=== PATIENT | female | born 1950 | race Caucasian/White ===

== ENCOUNTER 2017-05-08 07:37 | Inpatient (IN) | payer OTHER ==
[2017-04-28 13:49] VITALS: BMI 35.0
--- NOTE | 2017-04-28 14:35 | PAT Medication Instructions ---
Service Date Apr 28, 2017. Current Home Medication List Aspirin (Aspirin Ec), 81 MG PO HS Betamethasone Dip (Betamethasone Dipropionat), 1 APPLN TOP PRN Cholecalciferol (Vitamin D3), 1 TAB PO QAM Cyanocobalamin (Vitamin B-12 Inj), 1 ML IM MONTHLY Cyanocobalamin (Vitamin B-12), 2,500 MCG SL QAM Docusate Sodium (Colace), 1 CAP PO BID Doxycycline Monohydrate (Monodox), 100 MG PO BID Famotidine (Pepcid), 20 MG PO BID Fentanyl (Duragesic), 50 MCG TD CQ72HR Furosemide (Lasix), 20 MG PO QAM Magnesium Oxide (Mag-Ox), 400 MG PO QAM Multivitamin (Multivitamin), 2 TAB PO QAM Oxycodone Ir (Roxicodone Ir), 1-2 TAB PO Q4H PRN for Severe Pain Potassium Ext Rel (Klor-Con), 20 MEQ PO QAM Turmeric (Curcuma Longa) (Turmeric), 500 MG PO QAM Vitamin E (Alph-E), 400 UNITS PO QAM [Ferrous Sulfate], 65 MG PO QAM Medication Instructions For Your Scheduled Surgery -Continue as directed: Cyanocobalamin (Vitamin B-12 Inj), 1 ML IM MONTHLY Fentanyl (Duragesic), 50 MCG TD CQ72HR - Hold the following medications 2 weeks prior to surgery: Vitamin E (Alph-E), 400 UNITS PO QAM Turmeric (Curcuma Longa) (Turmeric), 500 MG PO QAM - Hold the following medications 24 hours prior to surgery: Betamethasone Dip (Betamethasone Dipropionat), 1 APPLN TOP PRN - Hold the following medications the morning of surgery: [Ferrous Sulfate], 65 MG PO QAM Potassium Ext Rel (Klor-Con), 20 MEQ PO QAM Furosemide (Lasix), 20 MG PO QAM Magnesium Oxide (Mag-Ox), 400 MG PO QAM Multivitamin (Multivitamin), 2 TAB PO QAM Cyanocobalamin (Vitamin B-12), 2,500 MCG SL QAM Cholecalciferol (Vitamin D3), 1 TAB PO QAM Docusate Sodium (Colace), 1 CAP PO BID - Take the following medications the morning of surgery with a sip of water: Oxycodone Ir (Roxicodone Ir), 1-2 TAB PO Q4H PRN for Severe Pain (if needed) Doxycycline Monohydrate (Monodox), 100 MG PO BID Famotidine (Pepcid), 20 MG PO BID - Take the following medications as scheduled the night before surgery: Aspirin (Aspirin Ec), 81 MG PO HS Oxycodone Ir (Roxicodone Ir), 1-2 TAB PO Q4H PRN for Severe Pain (if needed) Doxycycline Monohydrate (Monodox), 100 MG PO BID Famotidine (Pepcid), 20 MG PO BID Docusate Sodium (Colace), 1 CAP PO BID If you have any questions please call us at [phone] or [phone] or [phone]
--- NOTE | 2017-04-28 15:24 | DIAGNOSTIC IMAGING REPORT ---
CHEST PREADMISSION(PA/LAT) HISTORY: Preop. COMPARISON: Chest 10/05/2015. FINDINGS: Posterior fusion within the lower thoracic spine. Small to moderate hiatus hernia. The heart is normal in size. No focal lung consolidations to suggest pneumonia. No evidence for pulmonary edema. Stable punctate calcified granuloma within the left lung apex. No pneumothorax. No pleural effusions. IMPRESSION: No acute process within the chest. Small to moderate hiatus hernia persists. Electronically signed by: Kolby Henderson M.D. 04/28/2017 3:22 PM Dictated Date/Time: 04/28/2017 3:21 PM
[2017-04-28 15:29] LABS: URINE APPEARANCE CLEAR (CLEAR); URINE BILIRUBIN NEG (NEG); URINE COLOR DK YELLOW; URINE EPITHELIAL CELL AUTO >30 /lpf (0-5); URINE NITRITE NEG (NEG); URINE PH 8.5 (4.5-7.5); URINE SPECIFIC GRAVITY 1.022 (1.000-1.030); UROBILINOGEN NEG (NEG)
[2017-04-28 15:30] LABS: BUN/CREATININE RATIO 15.4 (10-20); CALCIUM 8.4 mg/dl (8.5-10.1); CREATININE 0.68 mg/dl (0.60-1.20); MANUAL MICROSCOPIC REQUIRED? NO; POTASSIUM 3.7 mmol/L (3.5-5.1); REVIEW REQ? NO
[~2017-05-08] VITALS: Ht 154.9 cm; Wt 83.2 kg
[2017-05-08] VITALS (8 sets, daily range): BP systolic 90–146; BP diastolic 46–79; PULSE 87–99; TEMP 36.8–37.3; O2SAT 93–98; Ht 154.9 cm; Wt 83.2 kg
[~2017-05-08 07:37] MED LIST: ASPI81TA28 PO; CHOL20007 PO; CLINDAMYCIN 600 MG/54 ML D5W IV SCH; CYAN10005 SL; CYAN3INJ IM; DOCU-94 PO; DOXY100C76 PO; DPRSCR15 TOP; FAMO20TA11 PO; FERROUS SULFATE PO; FNTTP50 TD; FURO-85 PO; LACTATED RINGER'S 1000ML 1,000 ML IV SCH; MAGN400T6 PO; MULT-506 PO; OXYC1TAB3 PO; POTA20TA16 PO; TURM1CAP4 PO; VITA400C28 PO
[2017-05-08 08:46] LABS: INR 1.4 (0.9-1.1); PARTIAL THROMBOPLASTIN RATIO 1.1
[2017-05-08] MEDS ORDERED: FENTANYL CITRATE INJ 50 MCG/1 ML 2 ML VIAL ONE ×2 (09:12→10:25)
[2017-05-08] MEDS ORDERED: MIDAZOLAM HCL 1 MG/ML 2ML VIAL ONE (09:12)
[2017-05-08] MEDS ORDERED: ONDANSETRON INJ 2 MG/ML 2 ML VIAL IV PRN ×2 (09:15→11:00)
[2017-05-08] MEDS ORDERED: ATROPINE SULFATE 0.1 MG/ML 5ML SYR IV PRN (09:15)
[2017-05-08] MEDS ORDERED: EpHEDrine SULFATE INJ 50 MG/ML AMP IV PRN (09:15)
[2017-05-08] MEDS ORDERED: FENTANYL CITRATE INJ 50 MCG/1 ML 2 ML VIAL IV PRN (09:15)
--- NOTE | 2017-05-08 09:25 | History & Physical Bridge Note ---
H&P Re-Evaluation Bridge Note: I have examined the patient, reviewed the History & Physical and in the interval since the performance of the History & Physical I have noted the following changes of clinical significance: No changes noted
--- NOTE | 2017-05-08 09:26 | History and Physical ---
History & Physical Date May 08, 2017. Chief Complaint Chronic back and leg pain History of Present Illness The patient is a 67 year old female with complaints of chronic back and leg pain Past Medical/Surgical History Medical Problems: (1) Lumbar stenosis with neurogenic claudication Additional History Hepatic Disease: No Endocrine Disorder: No Kidney Disease: No Hypertension: No Heart Disease: No Bleeding Tendencies: No Infectious Diseases: No Allergies Coded Allergies: Penicillins (Verified Allergy, Severe, Throat swelling, hives, 05/08/17) Benzyl Alcohol (Verified Allergy, Intermediate, Facial swelling- benzylperoxide, 05/08/17) Wasp (Verified Allergy, Unknown, ALL STINGING INSECTS 'CEPT HONEYBEES - HIVES SOB THROAT SWELL, 05/08/17) Morphine (Verified Adverse Reaction, Mild, Nausea, 05/08/17) Home Medications Scheduled Aspirin (Aspirin Ec), 81 MG PO HS Betamethasone Dip (Betamethasone Dipropionat), 1 APPLN TOP PRN Cholecalciferol (Vitamin D3), 1 TAB PO QAM Cyanocobalamin (Vitamin B-12 Inj), 1 ML IM MONTHLY Cyanocobalamin (Vitamin B-12), 2,500 MCG SL QAM Docusate Sodium (Colace), 1 CAP PO BID Doxycycline Monohydrate (Monodox), 100 MG PO BID Famotidine (Pepcid), 20 MG PO BID Fentanyl (Duragesic), 50 MCG TD CQ72HR Furosemide (Lasix), 20 MG PO QAM Magnesium Oxide (Mag-Ox), 400 MG PO QAM Multivitamin (Multivitamin), 2 TAB PO QAM Potassium Ext Rel (Klor-Con), 20 MEQ PO QAM Turmeric (Curcuma Longa) (Turmeric), 500 MG PO QAM Vitamin E (Alph-E), 400 UNITS PO QAM [Ferrous Sulfate], 65 MG PO QAM Scheduled PRN Oxycodone Ir (Roxicodone Ir), 1-2 TAB PO Q4H PRN for Severe Pain Physical Examination Skin: warm/dry, no rash Eyes: normal inspection, EOMI, sclerae normal ENT: normal ENT inspection, pharynx normal Head: normocephalic, atraumatic Neck: supple, no adenopathy, trachea midline Respiratory/Chest: lungs clear, normal breath sounds, no respiratory distress Cardiovascular: regular rate, rhythm, no edema, no murmur Abdomen / GI: normal bowel sounds, non tender Back: normal inspection Extremities: normal inspection, normal range of motion Neurologic/Psych: no motor/sensory deficits, alert, normal reflexes, oriented x 3 Diagnosis Chronic back and leg pain Plan of Treatment Spinal cord stimulator trial
[2017-05-08] MEDS ORDERED: BACITRACIN 50000 UNIT VIAL ONE (09:55)
[2017-05-08] MEDS ORDERED: BUPIVACAINE/EPINEPHRINE 0.5% MPF 1:200,000 30 ML VIAL ONE (09:55)
[2017-05-08] MEDS ORDERED: HYDROmorphone INJ 2 MG/ML SYR/VIAL ONE (10:25)
[2017-05-08] MEDS ORDERED: ONDANSETRON INJ 2 MG/ML 2 ML VIAL ONE (10:32)
[2017-05-08] MEDS ORDERED: ROCURONIUM BROMIDE 10 MG/ML 5 ML VIAL IV ONE (10:32)
[2017-05-08] MEDS ORDERED: PROPOFOL IV EMULSION 10 MG/ML 20 ML VIAL IV ONE (10:32)
[2017-05-08] MEDS ORDERED: LIDOCAINE HCL 2% 2 ML VIAL (20MG/ML) ONE (10:32)
[2017-05-08] MEDS ORDERED: GLYCOPYRROLATE INJ 0.2 MG/ML VIAL ONE (10:32)
[2017-05-08] MEDS ORDERED: NEOSTIGMINE METHYLSULFATE 1 MG/ML 10ML VIAL ONE (10:32)
[2017-05-08] MEDS ORDERED: PHENYLEPHRINE 100MCG/ML 5ML SYR ONE (10:32)
[2017-05-08] MEDS ORDERED: DEXAMETHASONE SOD INJ 4 MG/ML VIAL ONE (10:32)
[2017-05-08] MEDS ORDERED: ACETAMINOPHEN 325 MG TAB PO PRN (11:00)
[2017-05-08] MEDS ORDERED: MAGNESIUM HYDROXIDE SUSP 30 ML UDC PO PRN (11:00)
[2017-05-08] MEDS ORDERED: FENTANYL 50 MCG/HR TDSY TD SCH (11:00)
[2017-05-08] MEDS ORDERED: HYDROmorphone INJ 2 MG/ML SYR/VIAL IV PRN (11:00)
[2017-05-08] MEDS ORDERED: DO NOT ADMINISTER PNEUMOCOCCAL VACCINE PRN ×2 (11:00)
[2017-05-08] MEDS ORDERED: ACETAMINOPHEN 500 MG TAB PO PRN (11:00)
[2017-05-08] MEDS ORDERED: DO NOT ADMINISTER FLU VACCINE PRN ×3 (11:00)
[2017-05-08] MEDS ORDERED: LORAZEPAM 1 MG TAB PO PRN (11:00)
[2017-05-08] MEDS ORDERED: LORAZEPAM INJ 1 MG in SYRINGE 0 ML IV PRN (11:00)
--- NOTE | 2017-05-08 11:04 | DIAGNOSTIC IMAGING REPORT ---
SPINE ONE VIEW, ANY LEVEL CLINICAL HISTORY: SPINAL CORD STIMULATOR TRIAL COMPARISON STUDY: None. FINDINGS: A single fluoroscopic spot image of the lower thoracic spine was submitted. Total fluoroscopy time was 8 seconds. Spinal stimulator lead is noted. The exact level of the tip is difficult to determine but likely resides at the T8 vertebral body. There is posterior fusion hardware seen within the lower thoracic/lumbar spine. IMPRESSION: Fluoroscopy provided for spinal cord stimulator placement. Electronically signed by: Kolby Henderson M.D. 05/08/2017 11:03 AM Dictated Date/Time: 05/08/2017 11:02 AM
--- NOTE | 2017-05-08 11:08 | [facility] Operative Report ---
Operative Report Operative Date May 08, 2017. Pre-Operative Diagnosis Lumbar Post Laminectomy Syndrome Post-Operative Diagnosis Same as preoperative Procedure(s) Performed #1 T10 laminotomy. #2 placement of 16-lead dorsal column stimulator paddle with temporary leads. Surgeon Dr. Jasmeet Beard Radar [employer] Traffic Controller Surgeon(s) Charisma Samaniego PA-C Estimated Blood Loss 20ml Findings None Specimens None per surgeon Description of Procedure Patient was met with preoperatively case discussed all questions are dressed. That point patient was taken back to the operative suite after undergoing intubation placed in a prone position the Trevor table on top Jasson frame. All bony promises well-padded eyes inspected to ensure there is no external pressure placed upon them. This time the thoracal lumbar spine was prepped and draped in normal sterile fashion. With the assistance of fluoroscopy identified the T10 11 disc space. Midline incision was created overlying this region. Sharp dissection assistance of Bovie cautery was performed onto an exposing the lamina space at T10 11. Then performed a midline decompression laminotomy and placed a 16-lead dorsal constant later paddle within the spinal canal. We verified our position with fluoroscopy. The leads were then sewn into place. Temporary leads detached. There run to the left flank. I attached external box in the paddle was tested for efficacy. At this complete the incision was closed with 1 Vicryl fascia 2-0 Vicryl subcutaneous tediously 4 Monocryl for final closure Steri-Strips sterile dressings placed. Patient we can take PACU stable condition. Please note Charisma Alexander was present at the entire procedure involved in patient positioning complex portions of the surgery and final skin closure. I attest to the content of the Intraoperative Record and any orders documented therein. Any exceptions are noted below.
--- NOTE | 2017-05-08 11:35 | Anesthesiology Progress Note ---
Anesthesia Post Op Note Date & Time May 08, 2017 at 11:34 Vital Signs Pain Intensity: 0 Vital Signs Past 12 Hours Date Time Temp Pulse Resp B/P (MAP) Pulse Ox O2 Delivery O2 Flow Rate FiO2 05/08/17 11:30 100 16 96/62 100 Oxymask 10 05/08/17 11:20 109 16 104/65 100 Oxymask 10 05/08/17 11:11 36.8 105 16 126/71 97 Oxymask 10 05/08/17 08:33 37.3 90 18 146/74 (98) 98 Room Air Notes Mental Status: alert / awake / arousable, participated in evaluation Pt Amnestic to Procedure: Yes Nausea / Vomiting: adequately controlled Pain: adequately controlled Airway Patency, RR, SpO2: stable & adequate BP & HR: stable & adequate Hydration State: stable & adequate Anesthetic Complications: no major complications apparent
[2017-05-08] MEDS ORDERED: RXC5 PO (13:41)
--- NOTE | 2017-05-08 13:42 | Discharge Instructions ---
Discharge Instructions Date of Service May 08, 2017. Admission Reason for Admission: Lumbar Post-Laminectomy Syndrome Discharge Discharge Diagnosis / Problem: chronic back and leg pain Discharge Goals Goal(s): Decrease discomfort Activity Recommendations Activity Limitations: per Instructions/Follow-up section . Instructions / Follow-Up Instructions / Follow-Up ACTIVITY RECOMMENDATIONS: SELF CARE INSTRUCTIONS AFTER A LAMINECTOMY 1. No prolonged sitting (less than 30 minutes for the first 3 weeks after surgery). 2. No bending, lifting more than 5 pounds, or twisting (roll like a log when turning in bed). 3. You may shower 3 days after surgery if no drainage from wound. Thoroughly dry wound. Do not soak in the tub. 4. Please walk as much as you can for exercise. Gradually increase the distance that you walk as your endurance increases. 5. You may drive in 7-10 days if you are comfortable and no longer requiring pain medications. SPECIAL CARE INSTRUCTIONS: VERY IMPORTANT TO READ AND REVIEW A. Your surgical incision has been closed with a cosmetic suture under the skin that will dissolve in about 6 weeks. In 14 days, you can use a pair of clean scissors and cut the suture that is left outside of the skin at the ends of your incision. B. Complications are uncommon, but please contact us if you have any signs or symptoms of: 1. wound infection (fever higher than 102.5 degrees F, redness, separation of wound, drainage, or increasing pain from the incision) 2. blood clots in legs (pain, swelling, redness and warmth in legs) 3. urinary tract infection (fever higher than 102.5 degrees, burning upon urination or increased frequency of urination) 4. nerve problems (inability to walk on your toes or heels, numbness, loss of bowel or bladder control) 5. any other symptoms that concern you. C. Please call the office at if you have any concerns or questions about your operation or recovery. MANAGING PAIN AFTER SPINAL SURGERY 1. Narcotic medication is intended for short-term use and will be provided for surgical pain. Surgical pain usually lasts for a period of 4-6 weeks. Narcotic medication includes Percocet, Vicodin, Darvocet, Tylenol #3 or Lortab. 2. Longer-term pain is more appropriately treated with non-narcotic medication such as Tylenol ES. 3. Muscle spasm is not appropriately treated with narcotics. Muscle relaxers such as Soma, Flexeril or Skelaxin can be used along with Tylenol ES. 4. Remember that we all live with some "aches and pains". This is not unusual or uncommon after an injury or as we get older. 5. We will provide appropriate medication within the normal guidelines of their prescribed use. We will also be very cautious and aware of potential abuse and extended duration of patients' medication needs. 6. Please allow 2-3 days to process refills. Prescriptions will not be mailed but must be picked up at the office. FOLLOW UP VISIT: Keep your scheduled follow-up appointment. Any questions, please call the office at . Current Hospital Diet Patient's current hospital diet: Regular Diet Discharge Diet Recommended Diet: Regular Diet Procedures Procedures Performed: #1 T10 laminotomy. #2 placement of 16-lead dorsal column stimulator paddle with temporary leads. Pending Studies Studies pending at discharge: no Medical Emergencies . Who to Call and When: Medical Emergencies: If at any time you feel your situation is an emergency, please call 911 immediately. . Non-Emergent Contact Non-Emergency issues call your: Primary Care Provider . "Provider Documentation" section prepared by Jasmeet Beard. . VTE Core Measure Inpt VTE Proph given/why not?: Tiffany Stafford, SCD's
[2017-05-08] MEDS ORDERED: OXYCODONE HCL IR 5 MG TAB (IMMEDIATE RELEASE) ONE (13:59)
[2017-05-08] MEDS: SODIUM CHLORIDE 0.9% 1000ML 1,000 ML IV SCH (14:06)
[2017-05-08] MEDS: CHECK FENTANYL PATCH PLACEMENT SCH ×2 (16:27→23:18)
[2017-05-08] MEDS: CLINDAMYCIN IV 600 MG in DEXTROSE 5% 50ML 50 ML IV SCH (18:09)
[2017-05-08] MEDS: ASPIRIN 81 MG ECTAB PO SCH (21:53)
[2017-05-08] MEDS: DOXYCYCLINE HYCLATE 100 MG CAP PO SCH (21:53)
[2017-05-08] MEDS: FAMOTIDINE 20 MG TAB PO SCH (21:53)
[2017-05-08] MEDS: DEXAMETHASONE INJ 6 MG in SYRINGE 0 ML IV SCH (21:54)
[2017-05-08] MEDS: DOCUSATE SODIUM 100 MG CAP PO SCH (22:21)
[2017-05-08] MEDS: OXYCODONE HCL IR 5 MG TAB (IMMEDIATE RELEASE) PO PRN (23:19)
[2017-05-09] MEDS: CLINDAMYCIN IV 600 MG in DEXTROSE 5% 50ML 50 ML IV SCH ×2 (02:34→09:41)
[2017-05-09] MEDS: SODIUM CHLORIDE 0.9% 1000ML 1,000 ML IV SCH (02:37)
[2017-05-09 03:40] VITALS: BP 101/67; PULSE 71; TEMP 37; O2SAT 92
--- NOTE | 2017-05-09 05:57 | Clinical Documentation Query ---
CLINICAL DOCUMENTATION QUERY 67-y/o female who has undergone placement of neurostimulator for Chronic back pain 2/2 Lumbar Post Laminectomy Syndrome. The medical record reflects this patient as taking PO Lasix daily with out reason. In your clinical opinion is this patient being managed for: ( ) Chronic diastolic CHF managed with PO Lasix ( ) Not Agree ( ) Other explanation of clinical findings (Please Explain) ( ) Unable to determine (Please Define) ( ) Need to Discuss The medical record reflects the following clinical findings, treatment, and risk factors. Clinical Indicators: daily diuretic therapy Treatment: remains on Lasix daily Risk Factors: Age, Hx of HTN per anesthesia questionnaire Please clarify and document your clinical opinion in the progress notes and discharge summary. Terms such as "probable", "suspected", "likely", "questionable", "possible", or "still to be ruled out" are acceptable. IF IN AGREEMENT, YOU MUST DOCUMENT ABOVE DIAGNOSTIC STATEMENT IN DAILY PROGRESS NOTES AND DISCHARGE SUMMARY. This document is not part of the patient's record. Thank You, Darrion Rouse, RN [phone]
[2017-05-09] MEDS: DEXAMETHASONE INJ 6 MG in SYRINGE 0 ML IV SCH ×2 (05:58→13:44)
[2017-05-09 07:31] VITALS: BP 128/74; PULSE 71; TEMP 36.5; O2SAT 97
[2017-05-09] MEDS: CHECK FENTANYL PATCH PLACEMENT SCH ×3 (08:12→23:55)
[2017-05-09] MEDS: FUROSEMIDE 20 MG TAB PO SCH (08:17)
[2017-05-09] MEDS: DOCUSATE SODIUM 100 MG CAP PO SCH ×2 (08:17→20:47)
[2017-05-09] MEDS: FAMOTIDINE 20 MG TAB PO SCH ×2 (08:18→20:47)
[2017-05-09] MEDS: MAGNESIUM OXIDE 400 MG TAB PO SCH (08:18)
[2017-05-09] MEDS: DOXYCYCLINE HYCLATE 100 MG CAP PO SCH ×2 (08:18→20:46)
[2017-05-09] MEDS: POTASSIUM CHLORIDE 20 MEQ TABCR PO SCH (08:19)
[2017-05-09] MEDS: OXYCODONE HCL IR 5 MG TAB (IMMEDIATE RELEASE) PO PRN ×2 (09:40→19:42)
--- NOTE | 2017-05-09 11:07 | Anesthesiology Progress Note ---
Anesthesia Post Op Note Date & Time May 09, 2017 at 11:07 Vital Signs Pain Intensity: 6.0 Vital Signs Past 12 Hours Date Time Temp Pulse Resp B/P (MAP) Pulse Ox O2 Delivery O2 Flow Rate FiO2 05/09/17 08:00 Room Air 05/09/17 07:31 36.5 71 18 128/74 (92) 97 Room Air 05/09/17 03:40 37.0 71 18 101/67 (78) 92 Room Air 05/08/17 23:15 Room Air Notes Mental Status: alert / awake / arousable, participated in evaluation Pt Amnestic to Procedure: Yes Nausea / Vomiting: improving with treatment Pain: adequately controlled Airway Patency, RR, SpO2: stable & adequate BP & HR: stable & adequate Hydration State: stable & adequate Anesthetic Complications: no major complications apparent
[2017-05-09 12:34] VITALS: BP 117/77; PULSE 73; TEMP 36.8; O2SAT 94
--- NOTE | 2017-05-09 12:48 | Progress Note ---
Progress Note Date of Service May 09, 2017. Progress Note Patient is noting significant improvement with her dorsal calm stimulator trial. She's noted already a decrease in the requirements for narcotics for pain control. Socially she would like to pursue formal implantation of the spinal cord stimulator. She'll be made nothing by mouth after midnight tonight we will plan for surgery in the a.m.
[2017-05-09 14:56] VITALS: BP 135/78; PULSE 80; TEMP 36.7; O2SAT 95
[2017-05-09] MEDS: ASPIRIN 81 MG ECTAB PO SCH (20:47)
[2017-05-09 23:25] VITALS: BP 107/71; PULSE 64; TEMP 36.4; O2SAT 94
[2017-05-10] VITALS (7 sets, daily range): BP systolic 95–139; BP diastolic 60–80; PULSE 59–80; TEMP 36.3; O2SAT 95–98
[2017-05-10] MEDS ORDERED: BISACODYL 5 MG TABEC PO PRN (06:00)
[2017-05-10] MEDS ORDERED: BISACODYL 10 MG SUPP PR PRN (06:00)
[2017-05-10] MEDS ORDERED: FENTANYL CITRATE INJ 50 MCG/1 ML 2 ML VIAL ONE ×2 (06:36→08:06)
[2017-05-10] MEDS ORDERED: MIDAZOLAM HCL 1 MG/ML 2ML VIAL ONE (06:36)
[2017-05-10] MEDS ORDERED: BUPIVACAINE/EPINEPHRINE 0.5% MPF 1:200,000 30 ML VIAL ONE (07:01)
[2017-05-10] MEDS ORDERED: BACITRACIN 50000 UNIT VIAL ONE (07:01)
[2017-05-10] MEDS ORDERED: SCOPOLAMINE 1.5 MG TDSY TD ONE (07:11)
[2017-05-10] MEDS ORDERED: ONDANSETRON INJ 2 MG/ML 2 ML VIAL IV PRN (07:15)
[2017-05-10] MEDS ORDERED: FENTANYL CITRATE INJ 50 MCG/1 ML 2 ML VIAL IV PRN (07:15)
[2017-05-10] MEDS ORDERED: ATROPINE SULFATE 0.1 MG/ML 5ML SYR IV PRN (07:15)
[2017-05-10] MEDS ORDERED: SCOPOLAMINE 1.5 MG TDSY TD SCH (07:15)
[2017-05-10] MEDS ORDERED: CLINDAMYCIN 600 MG/54 ML D5W IV ONE (07:15)
[2017-05-10] MEDS ORDERED: EpHEDrine SULFATE INJ 50 MG/ML AMP IV PRN (07:15)
[2017-05-10] MEDS ORDERED: HYDROmorphone INJ 1 MG/ML SYR IV PRN (07:15)
[2017-05-10] MEDS: CHECK FENTANYL PATCH PLACEMENT SCH (08:00)
[2017-05-10] MEDS ORDERED: NURSING VERBAL MED ORDER STA (08:05)
[2017-05-10] MEDS ORDERED: HYDROmorphone INJ 2 MG/ML SYR/VIAL ONE (08:06)
[2017-05-10] MEDS ORDERED: EpHEDrine SULFATE 50MG/5ML SYR ONE (08:14)
[2017-05-10] MEDS ORDERED: PHENYLEPHRINE 100MCG/ML 5ML SYR ONE (08:14)
[2017-05-10] MEDS ORDERED: LIDOCAINE HCL 2% 2 ML VIAL (20MG/ML) ONE (08:14)
[2017-05-10] MEDS ORDERED: GLYCOPYRROLATE INJ 0.2 MG/ML VIAL ONE (08:14)
[2017-05-10] MEDS ORDERED: KETOROLAC TROMETHAMINE 30 MG/ML VIAL ONE ×2 (08:14→08:24)
[2017-05-10] MEDS ORDERED: PROPOFOL IV EMULSION 10 MG/ML 20 ML VIAL IV ONE (08:14)
[2017-05-10] MEDS ORDERED: NEOSTIGMINE METHYLSULFATE 1 MG/ML 10ML VIAL ONE (08:14)
[2017-05-10] MEDS ORDERED: ONDANSETRON INJ 2 MG/ML 2 ML VIAL ONE (08:14)
[2017-05-10] MEDS ORDERED: DEXAMETHASONE SOD INJ 4 MG/ML VIAL ONE (08:14)
--- NOTE | 2017-05-10 08:22 | [facility] Operative Report ---
Operative Report Operative Date May 10, 2017. Pre-Operative Diagnosis Chronic back pain and leg pain Post-Operative Diagnosis same as pre-operative Procedure(s) Performed #1 removal of temporary spinal cord stimulator leads. #2 implantation of spinal cord stimulator battery. Surgeon Dr. Jasmeet Beard Underground Mine Superintendent Surgeon(s) ION Thompson Estimated Blood Loss 25ml Findings None Specimens none per surgeon Description of Procedure Patient was met with preoperatively case discussed all questions addressed. After informed consent obtained she was taken to the operative suite underwent intubation placed in a prone position the Trevor table top Jasson frame. Thoracal lumbar spines prepped draped nostril fashion. I then opened the T10 laminotomy site copious irrigated with antibiotic solution. Detached the temporary leads to the permanent leads. I then created a pocket over the right flank for the battery. Then passed the leads to the pocket away of a cannula attached the battery tested for efficacy. I then buried the battery within the pocket. All incisions were then closed with subcutaneous Vicryl and Monocryl for final skin closure. Steri-Strips and sterile dressings placed. Patient we can taken to PACU stable condition. I attest to the content of the Intraoperative Record and any orders documented therein. Any exceptions are noted below.
[2017-05-10] MEDS ORDERED: METOPROLOL TARTRATE 1 MG/ML VIAL ONE (08:24)
[2017-05-10] MEDS: POTASSIUM CHLORIDE 20 MEQ TABCR PO SCH (09:00)
[2017-05-10] MEDS: MAGNESIUM OXIDE 400 MG TAB PO SCH (09:00)
[2017-05-10] MEDS ORDERED: POLYETHYLENE (MIRALAX) 17 GM PACK PO SCH (09:00)
--- NOTE | 2017-05-10 09:06 | Anesthesiology Progress Note ---
Anesthesia Post Op Note Date & Time May 10, 2017 at 09:06 Vital Signs Pain Intensity: 3 Vital Signs Past 12 Hours Date Time Temp Pulse Resp B/P (MAP) Pulse Ox O2 Delivery O2 Flow Rate FiO2 05/10/17 08:55 71 18 116/71 99 Nasal Cannula 3 05/10/17 08:45 81 18 111/67 99 Nasal Cannula 3 05/10/17 08:35 36.1 91 18 122/74 99 Oxymask 10 05/10/17 05:53 36.3 76 16 136/77 (96) 97 Room Air 05/09/17 23:35 Room Air 05/09/17 23:25 36.4 64 16 107/71 (83) 94 Room Air Notes Mental Status: alert / awake / arousable, participated in evaluation Pt Amnestic to Procedure: Yes Nausea / Vomiting: adequately controlled Pain: adequately controlled Airway Patency, RR, SpO2: stable & adequate BP & HR: stable & adequate Hydration State: stable & adequate Anesthetic Complications: no major complications apparent
[2017-05-10] MEDS ORDERED: ROCURONIUM BROMIDE 10 MG/ML 5 ML VIAL IV ONE (09:26)
[2017-05-10] MEDS: DOCUSATE SODIUM 100 MG CAP PO SCH (10:11)
[2017-05-10] MEDS: FUROSEMIDE 20 MG TAB PO SCH (10:11)
[2017-05-10] MEDS: DOXYCYCLINE HYCLATE 100 MG CAP PO SCH (10:11)
[2017-05-10] MEDS: FAMOTIDINE 20 MG TAB PO SCH (10:11)
--- NOTE | 2017-05-10 13:09 | Discharge Summary ---
Orthopedic Discharge Summary Admission Date/Reason May 08, 2017 at 09:30 Lumbar Post-Laminectomy Syndrome. Discharge Date/Disposition May 10, 2017 Home with services Diagnosis Principal Diagnosis: Chronic back and leg pain Admission Physical Exam As per Admitting History & Physical. Hospital Course Patient underwent spinal cord stimulator trial on Monday. She tolerated this well taken to the orthopedic floor postoperatively postoperatively she noted significant improvement of her pain patterns and elected to have the formal implantation on Monday. She tolerated this well and was subsequently discharged home discharge orders and instructions found the chart for further review. Discharge Instructions Please refer to the electronic Patient Visit Report (Discharge Instructions) for additional information.
[2017-05-10] MEDS: OXYCODONE HCL IR 5 MG TAB (IMMEDIATE RELEASE) PO PRN (15:15)
[2017-05-10] MEDS ORDERED: CHECK SCOPOLAMINE PATCH PLACEMENT SCH (16:00)
[2017-05-11] MEDS ORDERED: FENTANYL PATCH REMOVE & WASTE SCH (08:59)
[2017-05-11] MEDS ORDERED: FENTANYL 50 MCG/HR TDSY TD SCH (09:00)
== END 2017-05-10 15:30 | disposition home health service (06) | DRG 520 ==
LOC: C.ACU 07:37 → C.3E 09:30 → ENRESERV 11:58
PROVIDERS: ADMIT Orthopaedic Surgery Orthopaedic Surgery of the Spine; ATTEND Orthopaedic Surgery Orthopaedic Surgery of the Spine
PROC: 00HU0MZ Insertion of Neurostimulator Lead into Spinal Canal, Open Approach (ICD-10-PCS; principal; 2017-05-08 09:45)
PROC: 00WU0MZ Revision of Neurostimulator Lead in Spinal Canal, Open Approach (ICD-10-PCS; 2017-05-10)
PROC: 0JH70MZ Insertion of Stimulator Generator into Back Subcutaneous Tissue and Fascia, Open Approach (ICD-10-PCS; 2017-05-10)
DX: M96.1 Postlaminectomy syndrome, not elsewhere classified (principal); Z79.82 Long term (current) use of aspirin; Z79.899 Other long term (current) drug therapy